=== PATIENT | female | born 1995 | race Asian ===

== ENCOUNTER 2017-05-14 13:36 | Emergency (ER) | payer OTHER ==
[~2017-05-14] VITALS: Ht 172.7 cm; Wt 58.5 kg
[2017-05-14] MEDS ORDERED: LORazepam 0.5mg tab ORAL ONE (14:15)
[2017-05-14] MEDS ORDERED: ATIVAN0.5 MG ORAL (15:06)
--- NOTE | 2017-05-14 15:12 | Diagnostic Imaging Report ---
Indication: Chest pain Comparison: None A single view chest radiograph was obtained. Findings: Cardiomediastinal appearance is within normal limits for age. Pulmonary vascularity is appropriate. The diaphragmatic contour is smooth and costophrenic angles are sharp. No pleural effusions are identified. The bones are unremarkable. Impression: No acute findings
[2017-05-14 15:15] VITALS: BP 128/77
--- NOTE | 2017-05-14 21:27 | Emergency Room Report ---
History of Present Illness General Chief Complaint: Chest Pain Source: Patient (HARESH HODGE) Present Illness HPI The patient is a 21-year-old female who denies any medical history presenting for left-sided chest pain since 10 days prior. She states that this is intermittent. Pain is a 10 out of 10 dull ache and does not radiate. She does admit to being under increased stress due to schooling and job search. Pain worsened last night after hearing loud noise She denies other symptoms including N, V, F, chills, cough, SOB, ROBIN, abd pain (HARESH HODGE) Allergies: Coded Allergies: No Known Allergies (Unverified , 05/14/17) Patient History Past Medical History: see triage record Pertinent Family History: none Last Menstrual Period: 04/29/17 Now: No Reviewed Nursing Documentation: PMH: Agreed, PSxH: Agreed (HARESH HODGE) Nursing Documentation-PMH Past Medical History: No Stated History (HARESH HODGE) Review of Systems All Other Systems: negative except mentioned in HPI (HARESH HODGE) Physical Exam Vital Signs Date Time Temp Pulse Resp B/P (MAP) Pulse Ox O2 Delivery O2 Flow Rate FiO2 05/14/17 13:58 99.0 107 19 128/77 100 Room Air Sp02 EP Interpretation: reviewed, normal General Appearance: no apparent distress, alert, GCS 15, non-toxic Head: normocephalic, atraumatic Eyes: bilateral eye normal inspection, bilateral eye PERRL ENT: hearing grossly normal, normal pharynx, no angioedema, normal voice Neck: full range of motion, supple/symm/no masses Respiratory: chest non-tender, lungs clear, normal breath sounds, no accessory muscle use, speaking full sentences Cardiovascular #1: regular rate, rhythm, no edema, no gallop, no JVD, no murmur , no rub Musculoskeletal: back normal, gait/station normal, normal range of motion, non- tender Neurologic: alert, oriented x3, responsive, motor strength/tone normal, sensory intact, speech normal Psychiatric: judgement/insight normal, memory normal, mood/affect normal, no suicidal/homicidal ideation Skin: normal color, no rash, warm/dry, well hydrated ([email or web address] [email or web address]) Medical Decision Making PA Attestation Dr. Solis is my supervising physician. Patient management was discussed with my supervising physician (HARESH HODGE) Diagnostic Impression: Primary Impression: Anxiety Additional Impression: Chest pain Qualified Codes: R07.9 - Chest pain, unspecified ER Course The patient is a 21-year-old female who denies any medical history presenting for left-sided chest pain since 10 days prior. Differential diagnosis include but not limited to ACS, anxiety, PE,CHF, pneumonia, gastritis PE: Vitals WNL. NAD RRR. Chest non tender. lungs cta bilat Chest x-ray and EKG are both unremarkable The patient will be discharged home with a trial of low-dose Ativan for anxiety. She will followup with primary doctor. ER precautions are given (HARESH HODGE) EKG Diagnostic Results EP Interpretation: NSR. No acute changes Rate: normal - 85 Rhythm: NSR ST Segments: no acute changes ASA given to the pt in ED: No PA Scribe Text EKG was reviewed and read with my supervising physician. No acute ST segment changes are seen. Normal rate and rhythm. No acute changes. ([email or web address] [email or web address]) Chest X-Ray Diagnostic Results Chest X-Ray Diagnostic Results : Chest X-Ray Ordered: Yes # of Views/Limited/Complete: 1 View Indication: Chest Pain EP Interpretation: Yes PA Xray: Interpretation reviewed, by supervising MD, and agrees with findings. Interpretation: no consolidation, no effusion, no pneumothorax, no acute cardiopulmonary disease Impression: No acute disease Electronically Signed by: Haresh Hodge PA-C (HARESH HODGE PJohnAJohn) Chest X-Ray Diagnostic Results : Electronically Signed by: Vanna documentation reviewed by me and is accurate, Rufus Solis MD. (Rufus Solis M.D.) Last Vital Signs Date Time Temp Pulse Resp B/P (MAP) Pulse Ox O2 Delivery O2 Flow Rate FiO2 05/14/17 15:15 99.0 19 128/77 100 Room Air 05/14/17 14:00 107 Status: improved (HARESH [email or web address].A.) Disposition: HOME, SELF-CARE Condition: Improved Scripts Lorazepam* (ATIVAN*) 0.5 Mg Tablet 0.5 MG ORAL THREE TIMES A DAY, #10 TAB Prov: HARESH HODGE 05/14/17 Referrals: NOT CHOSEN IPA/MD,REFERRING (PCP) Patient Instructions: Nonspecific Chest Pain Additional Instructions: I discussed my findings with the patient. All questions and concerns have been answered. Treatment and medication compliance have been addressed. I advised the patient that they need to follow up with PMD in 3-5 days. Return to ED if symptoms worsen, new symptoms arise, or if needed for any reason. Patient verbalized understanding of discharge instructions. HARESH HODGE May 14, 2017 21:27 Rufus Solis M.D. May 16, 2017 11:52
--- NOTE | 2017-05-15 15:48 | Cardiology Report ---
APPROVED REPORT EKG Measurement Heart [id number] Sinus rhythm with short AK Otherwise normal ECG
== END 2017-05-14 15:15 | disposition home or self-care (01) ==
LOC: EMR 14:31
DX: F41.9 Anxiety disorder, unspecified (principal); R07.9 Chest pain, unspecified
CPT/HCPCS: 71045; 93005; 99283